=== PATIENT | female | born 1950 | race Caucasian/White ===

== ENCOUNTER 2020-03-06 06:57 | Outpatient (NON) | payer MEDICARE, SELFPAY ==
[2020-03-06 18:15] LABS: SARS-CoV-2 RNA PCR Negative
== END 2020-03-06 06:58 ==
DX: Z20.828 Contact with and (suspected) exposure to other viral communicable diseases (principal); R50.9 Fever, unspecified
CPT/HCPCS: 87635; C9803; U0003

== ENCOUNTER 2021-03-05 02:42 | Emergency (ER) | payer MEDICARE, SELFPAY ==
[2021-03-05 02:37] VITALS: BP 85/74; PULSE 81; RESP 12; TEMP 36
--- NOTE | 2021-03-05 02:54 | ECG_ITS ---
Measurements Intervals [place] Rate: 54 P: 39 WI: 168 QRS: 53 QRSD: 134 T: 150 QT: 488 QTc: 465 Interpretive Statements SINUS BRADYCARDIA INTRAVENTRICULAR CONDUCTION DELAY MINIMAL Q WAVES- INFERIOR LEADS ST-T WAVE ABNORMALITY IN LAT/HIGH LAT LEADS- CONSIDER ISCHEMIA BASELINE ARTIFACT- II, III, AVR, AVF, V1, V3-V6 ABNORMAL ECG Electronically Signed On 03-06-2021 9:43:02 CDT by Kyree Arias D.O.
[2021-03-05] MEDS: ONDANSETRON INJ 4 MG/2 ML VIAL IV PUSH (02:56)
[2021-03-05] MEDS: SODIUM CHLORIDE 0.9% IV 500 ML 999 ML IV CONT (02:56)
[2021-03-05 03:00] LABS: Glucose Point of Care 151 mg/dl (65-105)
[2021-03-05 03:09] LABS: Basophils Percent Auto 0.2 % (0.2-1.2); Eosinophils Absolute Auto 0.1 K/mm3 (0-0.3); Eosinophils Percent Auto 0.6 % (0-4.4); Hematocrit 27.5 % (37.0-47.0); Hemoglobin 7.8 g/dL (12.0-15.0); Immature Granulocyte Absolute 0.04 K/mm3 (0.00-0.031); Immature Granulocyte Percent A 0.5 % (0-0.5); Lymphocytes Absolute Auto 1.81 K/mm3 (0.9-3.2); Lymphocytes Percent Auto 21.8 % (18.3-44.2); Mean Corpuscular HGB Conc 28.4 g/dl (32-36); Mean Corpuscular Hemoglobin 25.2 pg (26-34); Mean Corpuscular Volume 88.7 fl (80-100); Mean Platelet Volume 11.4 fl (7.4-10.4); Monocytes Absolute Auto 0.4 K/mm3 (0.1-0.6); Monocytes Percent Auto 4.3 % (2.6-8.5); Neutrophils Percent Auto 72.6 % (45.5-73.1); Platelet Count Result 232 k/mm3 (150-375); Red Cell Distribution Width 16.9 % (11.5-14.5); White Blood Count 8.3 K/mm3 (4.5-10.0)
[2021-03-05 03:17] LABS: Alanine Aminotransferase 34 U/L (4-35); Albumin Level 3.3 g/dL (3.5-5.1); Alkaline Phosphatase 73 U/L (38-126); Anion Gap 17 mmol/L (8-16); Aspartate Amino Transferase 87 U/L (14-36); Bilirubin,Total 0.9 mg/dL (0.2-1.3); Blood Urea Nitrogen 30 mg/dL (7-17); Calcium 9.3 mg/dL (8.4-10.2); Carbon Dioxide 16 mmol/L (22-30); Chloride 108 mmol/L (98-107); Estimated CRCL calculation 42 ml/min; Estimated Glomerular Filt Rate 55; Glucose 171 mg/dL (65-110); Lipase 24 U/L (23-300); Potassium 4.8 mmol/L (3.4-5.0); Sodium 141 mmol/L (137-145)
[2021-03-05 03:19] LABS: INR 1.2; Prothrombin Time 15.1 Seconds (11.1-14.7)
[2021-03-05 03:20] LABS: Partial Thromboplastin Time 24.4 SECONDS (22.3-36.8)
--- NOTE | 2021-03-05 03:21 | PC.NURSE ---
Pt HR down to 30s, EDP Dr Harry made aware, pt became unresponsive at this time, JYOTSNA RAMOS called and CPR initiated. SEE CODE SHEET.
[2021-03-05 03:26] LABS: Hypochromasia 1+ (NORMAL); Ovalocytes 1+ (NORMAL); Platelet Estimate Adequate (Adequate)
[2021-03-05 03:27] LABS: Add Urine Microscopic? YES; Appearance Urine Clear (Clear); Bilirubin Urine Negative (Negative); Blood Urine Negative (Negative); Color Urine Yellow (Yellow); Glucose Urine UA Negative (Negative); Ketones Urine Negative (Negative); Leukocyte Esterase Ur Negative LEU/UL (Negative); Nitrate Urine Negative (Negative); Protein Urine Negative (Negative); RBC Urine 0-2 /hpf (0-2); Specific Grav Ur 1.015 (1.001-1.035); Squamous Epithelial Cell Urine Rare /hpf (Few); Urobilinogen Urine Negative mg/dL (<2.0); WBC Urine 0-3 /hpf
[2021-03-05 03:35] LABS: Ammonia < 9 umol/L (9-30)
[2021-03-05 04:02] LABS: Glucose Point of Care 119 mg/dl (65-105)
[2021-03-05 04:04] LABS: Hematocrit 35.1 % (37.0-47.0); Hemoglobin 9.1 g/dL (12.0-15.0); Immature Platelet Fraction Pct 3.3 % (0.9-11.2); Mean Corpuscular HGB Conc 25.9 g/dl (32-36); Mean Corpuscular Hemoglobin 26.7 pg (26-34); Mean Corpuscular Volume 102.9 fl (80-100); Mean Platelet Volume 13.6 fl (7.4-10.4); Platelet Count Result 176 k/mm3 (150-375); Red Blood Count 3.41 M/mm3 (4.2-5.4); Red Cell Distribution Width 17.3 % (11.5-14.5); White Blood Count 13.1 K/mm3 (4.5-10.0)
[2021-03-05 04:20] LABS: Alanine Aminotransferase 30 U/L (4-35); Aspartate Amino Transferase 162 U/L (14-36); Bilirubin,Total 2.6 mg/dL (0.2-1.3); Blood Urea Nitrogen 16 mg/dL (7-17); Calcium 4.8 mg/dL (8.4-10.2); Carbon Dioxide < 5 mmol/L (22-30); Chloride 119 mmol/L (98-107); Estimated CRCL calculation 80 ml/min; Estimated Glomerular Filt Rate > 60; Glucose 83 mg/dL (65-110); Potassium 4.7 mmol/L (3.4-5.0); Sodium 147 mmol/L (137-145)
[2021-03-05 04:34] LABS: Anisocytosis 1+ (NORMAL); Atypical Lymphocytes Present; Band Neutrophils Percent 2 % (0-6); Eosinophils Absolute Manual 0.13 K/mm3 (0.02-0.5); Eosinophils Percent Manual 1 % (0-4); Hypochromasia 1+ (NORMAL); Monocytes Absolute Manual 1.04 K/mm3 (0.1-0.90); Monocytes Percent Manual 8 % (3-9); Neutrophils Absolute Manual 6.41 K/mm3 (1.7-7.2); Neutrophils Percent Manual 47 % (46-73); Platelet Estimate Adequate (Adequate); Total Cells Counted 100
--- NOTE | 2021-03-05 04:34 | ED.ABDPAIN ---
HPI - Abdominal Pain General Chief Complaint: Abdominal Pain Stated Complaint: n/v/d bp 78/34 Time Seen by Provider: 03/05/21 02:49 Source: patient History of Present Illness HPI narrative: Patient presents with feeling tired. Patient reports she started feeling ill around noon today symptoms got progressively worse so she called an ambulance. Pain reports nausea vomiting and diarrhea since around noon. She noted her diarrhea blood in it which is very unusual for her. Reports diffuse abdominal pain and generalized fatigue. EMS reported patient wanted to go to [facility] initially called for medical control however due to patient's hypotension and hypoxia there were routed to the closest facility. Related Data Allergies Allergy/AdvReac Type Severity Reaction Status Date / Time fluorescein Allergy Severe SWELLING Verified 03/05/21 02:53 AND HIVES Review of Systems Review of Systems: CONSTITUTIONAL: Denies fever, chills, or sweats. EYES: Denies visual changes, redness, or discharge. ENT: Denies rhinorrhea, congestion, sore throat, or otalgia. CARDIOVASCULAR: Denies chest pain, palpitations, or edema. RESPIRATORY: Denies cough or dyspnea. GASTROINTESTINAL: Patient ports abdominal pain nausea vomiting GENITOURINARY: Denies dysuria or hematuria. SKIN: Denies rash or itching. MUSCULOSKELETAL: Denies back pain, joint pain, or myalgia. NEUROLOGIC: Patient does report dizziness All systems reviewed & are unremarkable except as noted in HPI and below PMFSH Family History Family History Other Diabetes mellitus Family history of arthritis Family history of cardiovascular disease Hypertension Social History Social History Smoking status: Never smoker Alcohol intake: current Exam Narrative: GENERAL: Pale appearing no acute distress HEAD: Normocephalic, atraumatic. EYES: PERRLA and EOMI. pale conjunctive a ENT: Nares clear, no rhinorrhea or epistaxis. Mucous membranes moist. NECK: Supple. No masses. No JVD CHEST: Clear to auscultation. No respiratory distress. No wheezes rales or rhonchi HEART: Regular rate and rhythm. No murmur heard. Normal peripheral pulses. ABDOMEN: Moderate diffuse abdominal pain, nondistended, normal active bowel sounds. RECTAL: Nurse director of education present during the exam maria de jesus blood noted EXTREMITIES: Normal range of motion. No edema. SKIN: Warm, dry, no rash. Course Vital Signs Vital signs: Vital Signs Temperature 36.0 C L 03/05/21 02:37 Pulse Rate 81 03/05/21 02:37 Respiratory Rate 12 03/05/21 02:37 Blood Pressure 85/74 L 03/05/21 02:37 Temperature 36.0 C L 03/05/21 02:37 Pulse Rate 81 03/05/21 02:37 Respiratory Rate 12 03/05/21 02:37 Blood Pressure 85/74 L 03/05/21 02:37 MDM - Abdominal Pain MDM Narrative Medical decision making narrative: Patient came in appearing pale with hypotension, immediately order 500 fluid were ordered to see if patient will be fluid responsive. Patient's blood pressure continued to climb and uncrossed match PRBCs were ordered. Percent of PRBCs was initiated and then patient's heart rate and to slow it appeared to be a sinus bradycardia. It was noted on the monitor he went to the bedside and patient was noted to have no pulse and was unresponsive. Please see code sheet for details. Patient got multiple rounds of epinephrine. And we had ROSC. Patient was moving around but did not respond to verbal commands. Second crossmatch was ordered RSI and central line kit are being obtained for further critical care interventions. Patient's heart rate began to slow down again attempted atropine without success and patient returned to PEA arrest. Patient continued epinephrine and amiodarone attempted bicarb continue the second unit of uncrossed matched blood. Patient remained in PEA then transition to asystole. Patient
[2021-03-05 04:35] LABS: Alkaline Phosphatase < 20 U/L (38-126); Lipase < 10 U/L (23-300)
--- NOTE | 2021-03-05 04:45 | PC.NURSE ---
BENEFITS OFFICER NOTIFIED @ 0357 BENEFITS OFFICER OK TO PULL TUBES @ 0403 BENEFITS OFFICER UPDATED OF PCP/ HOME @ 1627 MTS NOTIFIED 186Jessie TREJO
--- NOTE | 2021-03-05 05:02 | PC.NURSE ---
MTS RETURNED CALL - PT NOT A CANDIDATE, MAY RELEASE TO HOME.
--- NOTE | 2021-03-05 05:21 | PC.NURSE ---
DAVID TIME 0502
--- NOTE | 2021-03-05 05:24 | PC.NURSE ---
Pt received two full units of blood. First unit emergently transfused at 0327, second unit emergently transfused at 0343.
--- NOTE | 2021-03-05 05:24 | PC.NURSE ---
[facility] NOTIFIED AT THIS TIME.
== END 2021-03-05 05:00 | disposition expired ==
PROVIDERS: Emergency Provider Emergency Medicine
DX: I46.9 Cardiac arrest, cause unspecified (principal); K92.2 Gastrointestinal hemorrhage, unspecified; R00.1 Bradycardia, unspecified; I45.9 Conduction disorder, unspecified; R94.31 Abnormal electrocardiogram [ECG] [EKG]
CPT/HCPCS: 36415; 36430; 51701; 80053; 81001; 82140; 82948; 83690; 83735; 84484; 85025; 85055; 85610; 85730; 86850; 86900; 86901; 86920; 92950; 93005; 96361; 96374; 99285; C1751; J0171; J0282; J0461; J2405; J7030; J7040; P9016